=== PATIENT | female | born 1965 | race Hispanic/Latino ===

== ENCOUNTER 2018-11-28 14:28 | Emergency (ER) | payer MEDICARE ==
[2018-11-28] MEDS ORDERED: BOOSTRIX IM ONE (14:56)
--- NOTE | 2018-11-28 14:56 | Event Note ---
ED Screening Note ED Screening Note: pt was scratched by a cat yesterday at 3:30 pm was an unknown cat denies any bite unsure of last tetanus immunization This initial assessment/diagnostic orders/clinical plan/treatment(s) is/are subject to change based on patients health status, clinical progression and re- assessment by fellow clinical providers in the ED. Further treatment and workup at subsequent clinical providers discretion. Patient/guardian urged not to elope from the ED as their condition may be serious if not clinically assessed and managed. Initial orders include: tetanus immunization
[2018-11-28 15:02] VITALS: BP 169/83
--- NOTE | 2018-11-28 16:35 | Emergency Department Report ---
ED General Adult HPI - General Chief complaint: Animal Bite Stated complaint: SCRATCH BY WILD CAT Time Seen by Provider: 11/28/18 14:55 Source: patient Mode of arrival: Ambulatory Limitations: No Limitations - History of Present Illness Initial comments: This is a 52-year-old female presents to the ED stay in the yesterday while she was R long she was trying to get read as some straight cats when one accidentally scratched her left hand. Palpation: Animal control and animal control told her she needed to go to the ED for a tenderness and rabies vac cination. Patient also states that while she was trying to She accidentally slipped and fell and landed on her back. She is complaining of lower back pain. Patient states all vaccinations are up-to-date she denies fevers/chills/nausea vomiting - Related Data Previous Rx's Medication Instructions Recorded Last Taken Type Azithromycin [Zithromax Z-BAM] 250 mg PO DAILY #6 tablet 09/01/13 Unknown Rx Acetaminophen/Codeine [Tylenol 1 tab PO Q6H #10 tab 11/28/18 Unknown Rx /Codeine # 3 tab] Amoxicillin/K Clav Tab [Augmentin 1 tab PO Q12HR #21 tab 11/28/18 Unknown Rx 875 mg] Allergies Allergy/AdvReac Type Severity Reaction Status Date / Time ibuprofen AdvReac Diarrhea Verified 11/28/18 14:32 promethazine HCl AdvReac agitation Verified 11/28/18 14:32 [From Phenergan] ED Review of Systems ROS: Stated complaint: SCRATCH BY WILD CAT Other details as noted in HPI Comment: All other systems reviewed and negative ED Past Medical Hx - Past Medical History Additional medical history: anxiety HIGH CHOLESTROL. chronic lower back pain - Surgical History Hx Cholecystectomy: Yes Additional Surgical History: tonsillectomy. hysterectomy - Social History Smoking Status: Never Smoker Substance Use Type: None - Medications Home Medications: Home Medications Medication Instructions Recorded Confirmed Last Taken Type Azithromycin [Zithromax Z-BAM] 250 mg PO DAILY #6 tablet 09/01/13 Unknown Rx Acetaminophen/Codeine [Tylenol 1 tab PO Q6H #10 tab 11/28/18 Unknown Rx /Codeine # 3 tab] Amoxicillin/K Clav Tab [Augmentin 1 tab PO Q12HR #21 tab 11/28/18 Unknown Rx 875 mg] ED Physical Exam - General Limitations: No Limitations General appearance: alert, in no apparent distress - Head Head exam: Present: atraumatic, normocephalic - Eye Eye exam: Present: normal appearance - ENT ENT exam: Present: mucous membranes moist - Neck Neck exam: Present: normal inspection - Respiratory Respiratory exam: Present: normal lung sounds bilaterally. Absent: respiratory distress - Cardiovascular Cardiovascular Exam: Present: regular rate, normal rhythm. Absent: systolic murmur, diastolic murmur, rubs, gallop - GI/Abdominal GI/Abdominal exam: Present: soft, normal bowel sounds - Extremities Exam Extremities exam: Present: normal inspection - Back Exam Back exam: Present: normal inspection - Neurological Exam Neurological exam: Present: alert, oriented X3 - Psychiatric Psychiatric exam: Present: normal affect, normal mood - Skin Skin exam: Present: warm, dry, intact, normal color. Absent: rash ED Course Vital Signs 11/28/18 15:00 Temperature 98.7 F Pulse Rate 96 H Respiratory 18 Rate Blood Pressure 169/83 O2 Sat by Pulse 97 Oximetry ED Medical Decision Making - Radiology Data Radiology results: report reviewed, image reviewed LUMBAR SPINE 3 VIEWS INDICATION: Low back pain after fall yesterday. COMPARISON: No relevant prior imaging study available. FINDINGS: VERTEBRAE: No acute fracture. Normal alignment. DISC SPACES: Multilevel moderate to severe discogenic degenerative changes are noted and are most significant at L2-L3. FACET JOINTS: Generalized facet hypertrophy is noted. SOFT TISSUES: No acute abnormality. There is mild generalized atherosclerosis. ADDITIONAL FINDINGS: No additional significant findings. IMPRESSION: 1. No acute abnormality of the lumbar spine. 2. Moderate to severe lumbar spondylosis. Signer Name: Jaspal Thomas MD Signed: 11/28/2018 4:59 PM Workstation Name: [id number] Transcribed By: RAFAEL Dictated By: Jaspal Thomas MD Electronically Authenticated By: Jaspal Thomas MD Signed Date/Time: 11/28/18 0392 - Medical Decision Making 52 y o female presents with a febrile Scratching to left hand. Patient received tetanus booster D Patient received RIG and rabies first vaccination. Discussed patient's return to ED or return to the health department and on days 3, 7 and 14 for remainder of vaccination. Vital signs are normal patient is in no acute distress discharge Critical care attestation.: If time is entered above; I have spent that time in minutes in the direct care of this critically ill patient, excluding procedure time. ED Disposition Clinical Impression: Animal bite of finger Disposition: [id number] TO HOME OR SELFCARE Is pt being admited?: No Does the pt Need Aspirin: No Condition: Stable Instructions: Animal Bite (ED) Additional Instructions: Make sure to follow up with the primary care physician as discussed. Take all your medications as you've been prescribed. Returns to clinic on day 3, Day 7 and day14 to get your vaccination series completed If you have any worsening symptoms or develop new symptoms please return to ED immediately. Prescriptions: Amoxicillin/K Clav Tab [Augmentin 875 mg] 1 tab PO Q12HR #21 tab Acetaminophen/Codeine [Tylenol /Codeine # 3 tab] 1 tab PO Q6H #10 tab Referrals: PRIMARY CARE, [Primary Care Provider] - 3-5 Days [facility] [Outside] - 3-5 Days [facility] [Outside] - 3-5 Days [facility] [Outside] - 3-5 Days Forms: Accompanied Note, Work/School Release Form(ED) Time of Disposition: 17:12
[2018-11-28] MEDS ORDERED: RABAVERT RABIES VACCINE(PCEC) IM ONE (17:04)
--- NOTE | 2018-11-28 17:04 | XRay Report ---
LUMBAR SPINE 3 VIEWS INDICATION: Low back pain after fall yesterday. COMPARISON: No relevant prior imaging study available. FINDINGS: VERTEBRAE: No acute fracture. Normal alignment. DISC SPACES: Multilevel moderate to severe discogenic degenerative changes are noted and are most sig nificant at L2-L3. FACET JOINTS: Generalized facet hypertrophy is noted. SOFT TISSUES: No acute abnormality. There is mild generalized atherosclerosis. ADDITIONAL FINDINGS: No additional significant findings. IMPRESSION: 1. No acute abnormality of the lumbar spine. 2. Moderate to severe lumbar spondylosis. Signer Name: Jaspal Thomas MD Signed: 11/28/2018 4:59 PM Workstation Name: [id number]
== END 2018-11-28 18:01 | disposition home or self-care (01) ==
LOC: ED 14:28
DX: S60.512A Abrasion of left hand, initial encounter (principal); Z90.49 Acquired absence of other specified parts of digestive tract; Z90.710 Acquired absence of both cervix and uterus; Z88.8 Allergy status to other drugs, medicaments and biological substances; Z88.6 Allergy status to analgesic agent; Z79.899 Other long term (current) drug therapy; W55.03XA Scratched by cat, initial encounter; Y93.89 Activity, other specified; Y92.89 Other specified places as the place of occurrence of the external cause; Y99.8 Other external cause status
CPT/HCPCS: 72100; 90375; 90471; 90472; 90675; 90715; 96372